=== PATIENT | female | born 1990 | race Two or more races ===

== ENCOUNTER 2016-05-03 11:26 | Emergency (ER) | payer BC, OTHER ==
[2016-05-03 11:41] VITALS: BP 146/85; PULSE 87; RESP 18; TEMP 98; O2SAT 97
--- NOTE | 2016-05-03 12:54 | UCPHY ---
H & P Patient Type: New Chief Complaint Nursing Narrative: c/o body aches/fevers/chills/cough and this am lower abd pain Time Seen by Provider: 05/03/16 12:03 HPI/ROS: CHIEF COMPLAINT: Diarrhea, cough, body aches HISTORY OF PRESENT ILLNESS: This is a 25-year-old female who presents with 2 days of nonbloody diarrhea, myalgias, nausea but no vomiting, and crampy abdominal pain. She has not been aware of fever. She has had an upper respiratory infection during the last month but feels that she is getting better in terms of her cough. 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 However, thus far the dog has tested negative for leptospirosis. The exposure occurred over a week ago. REVIEW OF SYSTEMS: A ten point review of systems was performed and is negative with the exception of the items mentioned in the HPI. 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 She is here with her mother. - Physical Exam Exam: General Appearance: Alert. Vital signs reviewed. Blood pressure 146/85. Eyes: Pupils equal and round, no conjunctival injection, no discharge. Anicteric. ENT, Mouth: Mucous membranes are moist, no oropharyngeal erythema or edema. Neck: No lymphadenopathy, supple. Respiratory: Lungs are clear to auscultation; no wheezes, rales, or rhonchi. Cardiovascular: Regular rate and rhythm; no murmur, rub, or gallop. Gastrointestinal: Abdomen is obese, soft and nontender, no masses or organomegaly, bowel sounds normal. Skin: Warm and dry, no rashes on exposed skin, normal color. Back: Nontender to palpation over the thoracolumbar spine. No CVAT. Extremities: No lower extremity edema, no calf tenderness or swelling. Neurological: Alert and oriented. Moving all four extremities easily and equally. Psychiatric: Normal affect. Constitutional: Initial Vital Signs Temperature (C) 36.6 C 05/03/16 11:39 Heart Rate 87 05/03/16 11:39 Respiratory Rate 18 02/13/17 11:39 Blood Pressure 146/85 H 05/03/16 11:39 O2 Sat (%) 97 05/03/16 11:39 O2 Delivery Mode Room Air Allergies/Adverse Reactions: No Known Allergies Allergy (Unverified 05/03/16 11:39) Home Medications: Medication Instructions Recorded AZITHROMYCIN [Z-PACK] 250 mg PO DAILY #6 tab 05/03/16 Medical Decision Making ED Course/Re-evaluation: 25-year-old with diarrheal illness. Her abdominal exam is benign. She appears well hydrated. Influenza testing was negative. She did provide a diarrheal stool sample today. 1 of her major concerns is for leptospirosis, given her possible exposure. This has occurred to her once in the past and she was given azithromycin by her primary care physician. She requests azithromycin today. I am agreeable with writing a prescription for Z-Carmelo as it seems that the final leptospirosis testing on the animal to which she was exposed is not yet completed. Addendum: Patient was discharged with instructions concerning diarrhea. Stool studies returned positive for Campylobacter. I do not recommend additional treatment at this point in time. Differential Diagnosis: I considered a differential diagnosis including but not limited to viral or bacterial diarrhea, food intolerance, Crohn's, leptospirosis, and influenza. - Data Points Microbiology Results: MICROBIOLOGY 05/03/16 13:00 Stool Gastrointestinal Tract Panel (PCR) - Final Campylobacter Species Departure - Departure Disposition: Home, Routine, Self-Care Clinical Impression: Diarrhea Qualifiers: Diarrhea type: presumed infectious Qualified Code(s): A09 - Infectious gastroenteritis and colitis, unspecified Condition: Good Instructions: Acute Diarrhea (ED) Additional Instructions: Keep your appointment with Dr. Mcintosh tomorrow, as planned. Continue to drink plenty of water. If you are worse in any way--fever, severe abdominal pain, dizziness or lightheadedness--please be re-evaluated. I am writing a prescription for azithromycin which is a treatment for leptospirosis. As you know, we do not know whether you have leptospirosis or not. Referrals: PHILIP MCINTOSH [Primary Care Provider] - As per Instructions Prescriptions: AZITHROMYCIN [Z-PACK] 250 mg PO DAILY #6 tab - PQRS PQRS Measurement: Does not apply.
== END 2016-05-03 13:02 | disposition home or self-care (01) ==
LOC: CED 11:26
DX: A09 Infectious gastroenteritis and colitis, unspecified (principal)
CPT/HCPCS: 87400-PO; 99204-PO